=== PATIENT | male | born 1960 | race Caucasian/White ===

== ENCOUNTER → 2025-09-18 10:46 | Outpatient (REF) | payer OTHER, SELFPAY | LOC: RAD 10:46 | PROVIDERS: ATTENDING PHYSICIAN Family Medicine | DX: R63.4 Abnormal weight loss (principal); R79.9 Abnormal finding of blood chemistry, unspecified; Z01.89 Encounter for other specified special examinations; Z79.899 Other long term (current) drug therapy; R53.83 Other fatigue | CPT/HCPCS: 71046 ==

== ENCOUNTER → 2025-09-25 07:25 | Outpatient (REF) | payer OTHER, SELFPAY | LOC: RAD 07:25 | PROVIDERS: ATTENDING PHYSICIAN Family Medicine; FAMILY PHYSICIAN Family Medicine | DX: R63.4 Abnormal weight loss (principal); R79.9 Abnormal finding of blood chemistry, unspecified; Z79.899 Other long term (current) drug therapy; R53.83 Other fatigue | CPT/HCPCS: 74177; Q9967 ==